=== PATIENT | female | born 1975 | race Caucasian/White ===

== ENCOUNTER 2020-02-01 11:23 | Emergency (ER) | payer OTHER, SELFPAY ==
--- NOTE | ~2020-02-01 | CT_ITS ---
EXAMINATION: CT abdomen pelvis w con DATE: 02/01/2020 12:33 INDICATION: Epigastric abdominal pain. Nausea. TECHNIQUE: Computed tomography (CT) of the abdomen and pelvis was performed with 100 mL Omnipaque 350 intravenous contrast. Automated exposure control and iterative reconstruction technique were employe d. The dose-length product was 1254.79 mGy-cm. COMPARISON: None. FINDINGS: The visualized portions of the lung bases are clear without pneumonia or pleural effusion. The heart size is normal. No pericardial effusion. The liver, gallbladder, spleen, pancreas, adrenal glands, and kidneys are normal. There is a 5.6 cm cyst in left ovary. There are no dilated loops of b owel. The appendix is normal. There is wall thickening of the gastric antrum. There are no pathologic ally enlarged lymph nodes. There is no free intraperitoneal fluid. There is a supraumbilical ventral hernia containing fat. There is a 17 x 23 x 5 mm thick-walled fluid collection in the anterior abdomi nal wall to the right of midline in the subcutaneous fat abutting the musculature. There is mild thor acic spondylosis. IMPRESSION: 1. Wall thickening of the gastric antrum, consistent with gastritis. 2. Small thick-walled fluid collection in the subcutaneous fat in right anterior abdominal wall abutt ing the musculature, likely scarring and seroma. Abscess cannot be excluded. 3. 5.6 cm cyst in left ovary, likely benign. Pelvis ultrasound is recommended in one year. Reviewed, dictated and finalized at location A. IMPRESSION: 1. Wall thickening of the gastric antrum, consistent with gastritis. 2. Small thick-walled fluid collection in the subcutaneous fat in right anterio r abdominal wall abutting the musculature, likely scarring and seroma. Abscess cannot be excluded. 3. 5.6 cm cyst in left ovary, likely benign. Pelvis ultrasound is recommended i n one year.
[2020-02-01 11:24] VITALS: BP 146/100; PULSE 102; RESP 17; TEMP 36.4; O2SAT 100
[2020-02-01 11:49] LABS: Basophils Percent Auto 0.3 % (0.2-1.2); Eosinophils Percent Auto 0.2 % (0-4.4); Hemoglobin 15.3 g/dL (12.0-15.0); Immature Granulocyte Absolute 0.03 K/mm3 (0.00-0.031); Immature Granulocyte Percent A 0.3 % (0-0.5); Lymphocytes Absolute Auto 3.21 K/mm3 (0.9-3.2); Lymphocytes Percent Auto 30.1 % (18.3-44.2); Mean Corpuscular Hemoglobin 28.1 pg (26-34); Mean Corpuscular Volume 82.6 fl (80-100); Mean Platelet Volume 10.7 fl (7.4-10.4); Monocytes Absolute Auto 0.6 K/mm3 (0.1-0.6); Neutrophils Absolute Auto 6.7 K/mm3 (1.3-6.7); Neutrophils Percent Auto 63.1 % (45.5-73.1); Platelet Count Result 248 k/mm3 (150-375); Red Blood Count 5.45 M/mm3 (4.2-5.4); White Blood Count 10.7 K/mm3 (4.5-10.0)
[2020-02-01 11:54] LABS: Add Urine Microscopic? YES; Appearance Urine Clear (Clear); Bilirubin Urine Negative (Negative); Blood Urine 1+ (Negative); Color Urine Yellow (Yellow); Glucose Urine UA Negative (Negative); Ketones Urine Negative (Negative); Leukocyte Esterase Ur Negative LEU/UL (Negative); Mucus Urine Rare /lpf; Nitrate Urine Negative (Negative); Protein Urine Negative (Negative); RBC Urine 0-2 /hpf (0-2); Specific Grav Ur 1.016 (1.001-1.035); Squamous Epithelial Cell Urine Many /hpf (Few); Urobilinogen Urine Negative mg/dL (<2.0)
[2020-02-01 12:13] LABS: Alanine Aminotransferase 57 U/L (4-35); Albumin Level 3.9 g/dL (3.5-5.1); Alkaline Phosphatase 84 U/L (38-126); Anion Gap 12 mmol/L (8-16); Aspartate Amino Transferase 58 U/L (14-36); Bilirubin,Total 0.6 mg/dL (0.2-1.3); Blood Urea Nitrogen 9 mg/dL (7-17); Calcium 8.9 mg/dL (8.4-10.2); Carbon Dioxide 25 mmol/L (22-30); Chloride 98 mmol/L (98-107); Estimated CRCL calculation 97 ml/min; Estimated Glomerular Filt Rate > 60; Glucose 170 mg/dL (65-105); Lipase 78 U/L (23-300); Potassium 3.3 mmol/L (3.4-5.0); Sodium 135 mmol/L (137-145)
--- NOTE | 2020-02-01 12:15 | ED.ABDPAIN ---
HPI - Abdominal Pain General Chief Complaint: Abdominal Pain <BELA Blum Last Filed: 02/01/20 14:01> Stated Complaint: abd <BELA Blum Last Filed: 02/01/20 14:01> Time Seen by Provider: 02/01/20 11:32 <BELA Blum Last Filed: 02/01/20 14:01> Source: patient <BELA Blum Last Filed: 02/01/20 14:01> Mode of arrival: ambulatory <BELA Blum Last Filed: 02/01/20 14:01> Limitations: no limitations <BELA Blum Last Filed: 02/01/20 14:01> History of Present Illness HPI narrative: This is a 44 year old female that presents to the ER for upper abdominal pain x 2 days. Reports the pain is dull and intermittently sharp. Associated with nausea. Denies fever, vomiting, blood in the stool, or dysuria. <BELA Blum Last Filed: 02/01/20 14:01> Related Data Home Medications: Home Medications Medication Instructions Recorded Confirmed ergocalciferol (vitamin D2) 50,000 unit WEEKLY 02/01/20 02/01/20 tamoxifen mg DAILY 02/01/20 venlafaxine mg PO DAILY 02/01/20 <BELA Blum Last Filed: 02/01/20 14:01> Allergies/Adverse Reactions: Allergies Allergy/AdvReac Type Severity Reaction Status Date / Time formaldehyde Allergy Unknown Verified 11/27/15 11:28 neomycin Allergy Unknown Verified 11/27/15 11:28 thimerosal Allergy Unknown Verified 11/27/15 11:28 formaldehyde Allergy Unknown Uncoded 09/28/16 16:07 KATHON CG Allergy Unknown Uncoded 11/27/15 11:28 neomycin Allergy Unknown Uncoded 09/28/16 16:07 PRESERVATIVES Allergy Unknown Uncoded 11/27/15 11:28 thimerosal Allergy Unknown Uncoded 09/28/16 16:07 <BELA Blum Last Filed: 02/01/20 14:01> Review of Systems Review of Systems: Narrative: CONSTITUTIONAL: Denies fever CARDIOVASCULAR: Denies chest pain GASTROINTESTINAL: Reports abdominal pain, nausea. Denies vomiting, or diarrhea. GENITOURINARY: Denies dysuria <Patricia Ag PA-C - Last Filed: 02/01/20 14:01> All systems reviewed & are unremarkable except as noted in HPI and below <Patricia Ag PA-C - Last Filed: 02/01/20 14:01> PMFSH Past Medical History Medical History: Medical History (Updated 02/01/20 @ 13:59 by Patricia Ag PA-C) History of breast cancer <Patricia Ag PA-C - Last Filed: 02/01/20 14:01> Surgical History Surgical History: Surgical History (Updated 02/01/20 @ 12:17 by Patricia Ag PA-C) History of mastectomy <Patricia Ag PA-C - Last Filed: 02/01/20 14:01> Social History Social History: Social History Gender identity (if verbalized by the patient): Female <Patricia Ag PA-C - Last Filed: 02/01/20 14:01> Exam Narrative: Exam Narrative: GENERAL: Well-appearing, well-nourished, and in no acute distress. HEAD: Normocephalic, atraumatic. EYES: EOMI. CHEST: Clear to auscultation. No respiratory distress. No wheezes rales or rhonchi HEART: Regular rate and rhythm. No murmur heard. Normal peripheral pulses. ABDOMEN: Soft, nondistended, normal active bowel sounds. Tender to palpation throughout the upper abdomen, without guarding EXTREMITIES: Normal range of motion. No edema. SKIN: Warm, dry, no rash. NEURO: No focal deficits. Alert and oriented x3. PSYCH: Normal mood and affect <Patricia Ag PA-C - Last Filed: 02/01/20 14:01> Course Consultations Consultation #1: Spoke with Dr. Welch, plastic surgery about patient and work-up. Patient has had that seroma in the area, and is normal postop <Patricia Ag PA-C - Last Filed: 02/01/20 14:01> Date: 02/01/20 <Patricia Ag PA-C - Last Filed: 02/01/20 14:01> Time: 13:40 <Patricia Ag PA-C - Last Filed: 02/01/20 14:01> Consultation #2: Spoke with Dr. 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
[2020-02-01] MEDS: FAMOTIDINE 20 MG/2 ML VIAL IV PUSH (12:18)
[2020-02-01] MEDS: ONDANSETRON INJ 4 MG/2 ML VIAL IV PUSH (12:19)
--- NOTE | 2020-02-01 13:44 | PC.NURSE ---
CT resulted. labs resulted. waiting for further orders from provider. has consult call out for review.
[2020-02-01 13:52] VITALS: BP 138/96; PULSE 85; RESP 16; O2SAT 96
[2020-02-01] MEDS: POTASSIUM CHLORIDE 20 MEQ PACKET (FOR LIQUID) 40 MEQ PO (13:56)
[2020-02-01 15:09] VITALS: BP 155/90; PULSE 89; RESP 16; O2SAT 98
== END 2020-02-01 15:11 | disposition home or self-care (01) ==
PROVIDERS: Emergency Provider General Practice
DX: K29.00 Acute gastritis without bleeding (principal); N83.202 Unspecified ovarian cyst, left side; Z85.3 Personal history of malignant neoplasm of breast
CPT/HCPCS: 36415; 74177; 80053; 81001; 81025; 83690; 85025; 96365; 96375; 99284; A9270; J0131; J2405; Q9967

== ENCOUNTER 2023-09-30 10:13 | Emergency (ER) | payer OTHER, SELFPAY ==
[2023-09-30 10:36] VITALS: BP 168/106; PULSE 94; RESP 16; TEMP 36.7; O2SAT 99
--- NOTE | 2023-09-30 11:10 | ED.ANIMALBIT ---
HPI - Animal Bite General Chief Complaint: Animal Bite Stated Complaint: cat bite Time Seen by Provider: 09/30/23 10:47 History of Present Illness HPI narrative: 47-year-old female presents to the emergency department for evaluation for evaluation of a cat bite to her distal right 5th finger. Patient reports she was breaking up a fight between the cat dog last night when she got bit by the cat on the finger. Patient states her tetanus is not up-to-date. Patient noticed worsening swelling of the finger tip today. Related Data Home Medications Medication Instructions Recorded Confirmed ergocalciferol (vitamin D2) 1,250 50,000 unit WEEKLY 02/01/20 02/01/20 mcg (50,000 unit) capsule tamoxifen 20 mg tablet mg DAILY 02/01/20 venlafaxine 150 mg mg PO DAILY 02/01/20 capsule,extended release 24 hr Allergies Allergy/AdvReac Type Severity Reaction Status Date / Time formaldehyde Allergy Unknown Swelling Verified 09/30/23 10:40 neomycin Allergy Unknown Swelling Verified 09/30/23 10:40 thimerosal Allergy Unknown Swelling Verified 09/30/23 10:40 KATHON CG Allergy Unknown Swelling Uncoded 09/30/23 10:40 PRESERVATIVES Allergy Unknown Swelling Uncoded 09/30/23 10:40 Review of Systems Review of Systems: All systems reviewed & are unremarkable except as noted in HPI and below PMFSH Past Medical History Medical History (Updated 09/30/23 @ 11:13 by Keuyr Francis MD) History of breast cancer Surgical History Surgical History (Updated 02/01/20 @ 12:17 by Patricia Ag PA-C) History of mastectomy Social History Social History Gender identity (if verbalized by the patient): Female Exam Narrative: APPEARANCE: Well appearing, no pain, no distress, well-nourished. HEAD: normocephalic, atraumatic. EYES: PERRLA/EOMI, conjunctivae clear. NOSE: Normal no drainage EARS:TMS clear with good light reflex. THROAT: Pharynx clear, no exudate. NECK: Supple. No adenopathy, no masses. RESPIRATORY: Airway patent, respirations nonlabored. Clear to auscultation bilaterally, no rales, rhonchi, wheezing. CARDIOVASCULAR: Regular rate and rhythm without murmurs rubs or gallops. ABDOMINAL: Soft, nontender, nondistended, normal bowel sounds MUSCULOSKELETAL: Moves all extremities. Strength/ROM intact, No edema, No calf tenderness. NEURO: Alert. Cranial nerves II through XII intact. Good gait. Good coordination SKIN: Erythema of the distal aspect of right 5th finger no fluctuance, normal cap refill Course Vital Signs Vital signs: Vital Signs Temperature 98.1 F 09/30/23 10:36 Pulse Rate 94 09/30/23 10:36 Respiratory Rate 16 09/30/23 10:36 Blood Pressure 168/106 H 09/30/23 10:36 Pulse Oximetry 99 09/30/23 10:36 Temperature 98.1 F 09/30/23 10:36 Pulse Rate 94 09/30/23 10:36 Respiratory Rate 16 09/30/23 10:36 Blood Pressure 168/106 H 09/30/23 10:36 Pulse Oximetry 99 09/30/23 10:36 MDM - Animal Bite MDM Narrative Medical decision making narrative: 47-year-old female present to emergency department for evaluation for bite to the right 5th finger. Patient was updated on her tetanus and patient was also started on Augmentin while in the emergency department. Patient was encouraged close follow-up with primary care physician and patient is also being provided follow-up with hand surgery as needed. Discharge Plan Discharge Clinical Impression: Cat bite Patient Disposition: Home, Self-Care Condition: Stable Instructions: Antibiotic Form, Animal Bite (ED) Additional Instructions: Antibiotic as directed until completed. Have close follow-up with your primary care physician for a wound check. Additionally you may need follow-up with Hand surgery. If you have any worsening symptoms and please call or return to the emergency department. Prescriptions: New amoxicillin-pot clavulanate 875-125 mg tablet 1 tablet PO Q12H 7 Days Qty: 14 0RF No Action venlafaxine
[2023-09-30] MEDS: AMOXICILLIN/CLAVULANATE K 875-125 MG TAB 1 TABLET PO (11:21)
[2023-09-30] MEDS: TETANUS,DIPHTHERIA,AC PERTUSSIS ADULT (0.5 ML) BOOSTRIX IM (11:21)
== END 2023-09-30 11:32 | disposition home or self-care (01) ==
PROVIDERS: Emergency Provider Emergency Medicine
DX: S61.256A Open bite of right little finger without damage to nail, initial encounter (principal); Z85.3 Personal history of malignant neoplasm of breast; Z23 Encounter for immunization; W55.01XA Bitten by cat, initial encounter
CPT/HCPCS: 90471; 90715; 99283; A9270